=== PATIENT | female | born 1975 ===

== ENCOUNTER 2024-07-05 06:27 | Day surgery (SDC) | payer BC, SELFPAY | END 2024-07-05 15:29 | disposition home or self-care (01) | LOC: GI 06:27 | PROVIDERS: ATTENDING PHYSICIAN Internal Medicine Gastroenterology | DX: Z12.11 Encounter for screening for malignant neoplasm of colon (principal); K57.30 Diverticulosis of large intestine without perforation or abscess without bleeding; K64.8 Other hemorrhoids; K63.5 Polyp of colon; R13.14 Dysphagia, pharyngoesophageal phase; R12 Heartburn; K44.9 Diaphragmatic hernia without obstruction or gangrene; K22.2 Esophageal obstruction; K31.89 Other diseases of stomach and duodenum; K31.7 Polyp of stomach and duodenum; K20.0 Eosinophilic esophagitis; K22.70 Barrett's esophagus without dysplasia; Z80.0 Family history of malignant neoplasm of digestive organs; Z86.0101 Personal history of adenomatous and serrated colon polyps | CPT/HCPCS: 45385; 43239; 88305 ==

== ENCOUNTER 2024-12-31 06:27 | Day surgery (SDC) | payer BC, SELFPAY | END 2024-12-31 09:47 | disposition home or self-care (01) | LOC: GI 06:27 | PROVIDERS: ATTENDING PHYSICIAN Internal Medicine Gastroenterology | DX: R13.14 Dysphagia, pharyngoesophageal phase (principal); K22.2 Esophageal obstruction; K44.9 Diaphragmatic hernia without obstruction or gangrene; K31.7 Polyp of stomach and duodenum; K22.89 Other specified disease of esophagus; K22.70 Barrett's esophagus without dysplasia; K31.89 Other diseases of stomach and duodenum; R12 Heartburn; K20.0 Eosinophilic esophagitis; D13.2 Benign neoplasm of duodenum | CPT/HCPCS: 43239; 88305 ==

== ENCOUNTER 2025-02-27 06:18 | Day surgery (SDC) | payer BC, SELFPAY ==
[2025-02-27 07:10] VITALS: BMI 30.5
[2025-02-27 07:15] VITALS: BP 171/104
[2025-02-27 07:26] VITALS: BMI 30.5
[2025-02-27 09:46] VITALS: BP 120/87
[2025-02-27 10:00] VITALS: BP 141/88
[2025-02-27 10:15] VITALS: BP 140/83
== END 2025-02-27 10:30 | disposition home or self-care (01) ==
LOC: GI 06:18
PROVIDERS: ATTENDING PHYSICIAN Internal Medicine Gastroenterology
DX: K22.70 Barrett's esophagus without dysplasia (principal); K31.7 Polyp of stomach and duodenum
CPT/HCPCS: 43251; 88305

== ENCOUNTER 2025-06-19 06:16 | Day surgery (SDC) | payer BC, SELFPAY ==
[2025-06-19 10:16] VITALS: BMI 30.6
[2025-06-19 10:25] VITALS: BMI 30.6
[2025-06-19 10:30] VITALS: BP 181/101
[2025-06-19 12:30] VITALS: BP 145/92
[2025-06-19 12:45] VITALS: BP 148/93
== END 2025-06-19 13:00 | disposition home or self-care (01) ==
LOC: GI 06:16
PROVIDERS: ATTENDING PHYSICIAN Internal Medicine Gastroenterology
DX: D13.2 Benign neoplasm of duodenum (principal); Z98.890 Other specified postprocedural states
CPT/HCPCS: 43251; 43239; 88305